=== PATIENT | female | born 1980 | race Caucasian/White ===

== ENCOUNTER 2016-03-28 20:40 | Emergency (ER) | payer MEDICAID ==
--- NOTE | 2016-03-28 21:12 | EDPHY ---
H & P Stated Complaint: fever, cold sx x 3 days Time Seen by Provider: 03/28/16 20:52 HPI/ROS: HPI: 35-year-old female presents to emergency department with chief concern fever, cough. Reports chest discomfort when she coughs only. Chest pain not present when she is not coughing. Symptoms onset suddenly 2 days ago. Reports associated rhinorrhea, chills, myalgias. Denies dizziness, dysphagia, shortness of breath, abdominal pain, nausea, vomiting, diarrhea, rash. She is a current daily smoker. No history of asthma. History of pneumonia x1. ROS:10 point review of systems is negative other than as stated in HPI Source: Patient Exam Limitations: No limitations - Personal History LMP (Females 10-55): 8-14 Days Ago Current Tetanus/Diphtheria Vaccine: Unsure - Medical/Surgical History Hx Asthma: No Hx Chronic Respiratory Disease: No Hx Diabetes: No Hx Cardiac Disease: No Hx Renal Disease: No Hx Cirrhosis: No Hx Alcoholism: No Hx HIV/AIDS: No Hx Splenectomy or Spleen Trauma: No Other PMH: PSH: SURG FOR ENDOMETRIOSIS/ABLATION. Born with 1 kidney. c sections. etoh. tubal ligation - Family History Significant Family History: No pertinent family hx - Social History Smoking Status: Current every day smoker Alcohol Use: Rarely Drug Use: None - Physical Exam Exam: Vital signs stable, reviewed by me General: Awake, alert, calm, cooperative. No acute distress. Head: Normalocephalic. Atraumatic. EENT: PERRLA. EOMI. No pallor or injection. Anicteric. No nystagmus. No injection. TMs intact bilaterally with normal landmarks. Minimal rhinorrhea with mildly erythematous nasal turbinates bilaterally. Oropharynx without redness, exudates, or lesions. Tonsils 2+ bilaterally, no exudates. Neck: Supple, nontender. No lymphadenopathy. Full range of motion. No meningismus. Respiratory: Breathing unlabored. Breath sounds equal bilaterally and clear to auscultation. No adventitious sounds. CV: Chest nontender, atraumatic. Heart rate regular. No murmur, distal pulses 2+ bilaterally. Brisk cap refill all extremities. GI: Abdomen soft, nontender. Bowel sounds normoactive and positive x4 quadrants. Neuro: Alert. Oriented x 3. Speech clear. Nonfocal cranial nerves throughout. Sensation intact all extremities. Skin: Skin warm, dry, intact. Skin turgor normal. Extremities: Full range of motion in all 4 extremities. Strength 5+ all extremities. Constitutional: Initial Vital Signs Temperature (C) 37.3 C 03/28/16 20:43 Heart Rate 87 03/28/16 20:43 Respiratory Rate 16 03/28/16 20:43 Blood Pressure 111/79 03/28/16 20:43 O2 Sat (%) 96 03/28/16 20:43 O2 Delivery Mode Room Air Allergies/Adverse Reactions: amoxicillin Allergy (Verified 08/03/15 09:39) Home Medications: Medication Instructions Recorded Azithromycin [Zithromax] 250 mg PO DAILY #6 tab 03/28/16 Wellbutrin 100mg (*) 03/28/16 Medical Decision Making - Diagnostics Imaging: Chest, PA and Lateral History: Vertigo, cough, chest pain x4 days, cigarette smoker Comparison: None Findings: There is a 2.1 cm rounded density in the left upper lobe. There is a smaller 8 mm nodule in the right upper lobe. There is possibly an early right lower lobe infiltrate. There is bronchial wall thickening. Heart size is normal. There is no adenopathy or pleural effusion. Bones are unremarkable for age. Impression: Bilateral upper lobe pulmonary nodules. Possibly early right lower lobe infiltrate. Recommendation: Either follow-up chest x-ray after a cycle of antibiotic therapy or chest CT if a follow-up chest x-ray does not improve Results discussed with Gracie Boggs at 10:03 p.m. Dictated By: Ramiro Hicks MD ED Course/Re-evaluation: Patient is nontoxic. Temp 37.3 on arrival. Lungs clear to auscultation bilaterally. Flu swab negative. Given 650 mg p.o. Tylenol. Chest x-ray shows possible early infiltrate. Also shows bilateral upper lobe nodules. Patient counseled regarding these findings. She will be started on Zithromax. I have recommended a repeat chest x-ray and/or CT as directed by primary care at completion of antibiotic. Patient understands she needs to have repeat imaging to evaluate the pulmonary nodules found on x-ray. She is established at the [facility] Differential Diagnosis: Influenza, other viral URI, pneumonia, reactive airway disease - Data Points Laboratory Results: 03/28/16 21:00 Influenza Typ A,B (DFA) NEGATIVE FOR FLU (NEGATIVE) Medications Given: Discontinued Medications Acetaminophen (Tylenol) 1,000 mg PO EDNOW ONE Stop: 03/28/16 21:34 Last Admin: 03/28/16 21:43 Dose: 1,000 mg Departure - Departure Disposition: Home, Routine, Self-Care Clinical Impression: Pulmonary nodule, CAP (community acquired pneumonia) Condition: Good Instructions: Community Acquired Pneumonia (ED), Pulmonary Nodules (ED) Additional Instructions: Plan: Antibiotic as prescribed Push fluids You may use 600 mg of ibuprofen every 6 hours for fever, inflammation, or pain. Always take ibuprofen with food and stay well hydrated while taking. Do not exceed the maximum allowable dose in a 24 hour period which is 2400 mg. You may use 1000mg of Tylenol every 8 hours. This may be staggered with the ibuprofen. Do not exceed the maximum dose in a 24 hour period which is 3 GM or 3000 mg. Referrals: [facility] [Outside] - As per Instructions Stand Alone Forms: Work Excuse Prescriptions: Azithromycin [Zithromax] 250 mg PO DAILY #6 tab
[2016-03-28] MEDS ORDERED: ACETAMINOPHEN 500 MG TAB PO ONE (21:33)
[2016-03-28 21:44] VITALS: O2SAT 98
--- NOTE | 2016-03-28 22:06 | DX ---
Chest, PA and Lateral History: Vertigo, cough, chest pain x4 days, cigarette smoker Comparison: None Findings: There is a 2.1 cm rounded density in the left upper lobe. There is a smaller 8 mm nodule in the right upper lobe. There is possibly an early right lower lobe infiltrate. There is bronchial wal l thickening. Heart size is normal. There is no adenopathy or pleural effusion. Bones are unremarkab le for age. Impression: Bilateral upper lobe pulmonary nodules. Possibly early right lower lobe infiltrate. Recommendation: Either follow-up chest x-ray after a cycle of antibiotic therapy or chest CT if a fol low-up chest x-ray does not improve Results discussed with Gracie Boggs at 10:03 p.m.
[2016-03-28 22:33] VITALS: BP 116/75; PULSE 73; RESP 16; TEMP 99.3
== END 2016-03-28 22:31 | disposition home or self-care (01) ==
DX: J18.9 Pneumonia, unspecified organism (principal); R91.1 Solitary pulmonary nodule; F17.200 Nicotine dependence, unspecified, uncomplicated

== ENCOUNTER 2016-04-20 20:47 | Emergency (ER) | payer MEDICAID ==
[2016-04-20 21:25] VITALS: RESP 16; O2SAT 97
[2016-04-20 21:33] LABS: COLOR PALE YELLOW; LEUKOCYTE ESTERASE,URINE NEGATIVE (NEGATIVE); NITRITE,URINE NEGATIVE (NEGATIVE)
[2016-04-20 21:38] LABS: BACTERIA TRACE /hpf (NONE SEEN); MUCUS TRACE /lpf (NONE-1+)
--- NOTE | 2016-04-20 21:43 | EDPHY ---
H & P Time Seen by Provider: 04/20/16 20:57 HPI/ROS: CHIEF COMPLAINT: Abdominal pain HISTORY OF PRESENT ILLNESS: 36-year-old female presents to the emergency department by private vehicle complaining of right lower quadrant abdominal pain. The patient developed abdominal pain earlier this morning she denies any known trauma or injury. She has a history of frequent urinary tract infections. She initially developed some suprapubic pain however that is mostly resolved and now has isolated pain or right lower quadrant. Denies flank pain. Denies chest pain or difficulty breathing. No diarrhea. She has felt subjective fevers and chills. REVIEW OF SYSTEMS: Constitutional: No fever, no chills. Eyes: No double or blurry vision. ENT: No sore throat. Respiratory: No cough, no shortness of breath. Cardiac: No chest pain. Gastrointestinal: Abdominal pain as above. No vomiting or diarrhea. Genitourinary: No dysuria. Musculoskeletal: No neck or back pain. Skin: No rashes. Neurological: No headache. Past Medical/Surgical History: Ovarian cysts, endometriosis, tubal ligation, born with 1 kidney Social History: Single and lives in [place] Smoking Status: Current every day smoker Physical Exam: General Appearance: Alert, no distress. 130/60, 36.7 temperature Eyes: Pupils equal and round. Extraocular motions are all intact. ENT: Mouth: Mucous membranes moist. Respiratory: No wheezing, rhonchi, or rales, lungs are clear to auscultation. Cardiovascular: Regular rate and rhythm. Gastrointestinal: Abdomen is soft. Tenderness with palpation in the right lower quadrant. There is no rebound, guarding or masses noted. No CVA tenderness bilaterally. Neurological: Alert and oriented x 3, cranial nerves II through XII grossly intact Skin: Warm and dry, no rashes. Musculoskeletal: Nontender to palpate along the cervical, thoracic or lumbar spine. Neck is supple. Extremities: Full range of motion and no peripheral edema. Psychiatric: Patient is oriented X 3, there is no agitation. Constitutional: Initial Vital Signs Temperature (C) 36.7 C 04/20/16 20:53 Heart Rate 78 04/20/16 20:53 Respiratory Rate 18 04/20/16 20:53 Blood Pressure 131/60 H 04/20/16 20:53 O2 Sat (%) 96 04/20/16 20:53 O2 Delivery Mode Room Air Allergies/Adverse Reactions: amoxicillin Allergy (Verified 04/20/16 20:51) Home Medications: Medication Instructions Recorded Wellbutrin 100mg (*) 03/28/16 Vivatrol 04/20/16 Medical Decision Making - Diagnostics Imaging: Pelvic ultrasound reveals small uterine fibroid. No ovarian cysts or evidence of ovarian torsion noted. This was reported to me by Dr. Kirt Cortes. ED Course/Re-evaluation: 36-year-old female presents to the emergency department with lower abdominal pain. Patient has a history of frequent urinary tract infections. Her urinalysis today was clear with the exception of just trace bacteria. The patient had pain with palpation or right lower quadrant. Pelvic ultrasound was unremarkable. Unable to visualize appendix on abdominal ultrasound. CT imaging of the abdomen and pelvis was ordered to rule out acute appendicitis. The pros and cons of this were discussed with the patient including radiation exposure and the patient verbalized understanding and agreed. CT imaging of the abdomen pelvis was normal. Normal appearing appendix. Patient will be discharged home with close follow-up with primary care provider. Instructed to return if fever or worsening symptoms. Differential Diagnosis: Including but not limited to ovarian cyst, ovarian torsion, acute appendicitis, urinary tract infection, pyelonephritis, kidney stone - Data Points Laboratory Results: Laboratory Results 04/20/16 21:50 04/20/16 21:50 04/20/16 04/20/16 04/20/16 21:50 21:50 21:50 WBC 6.04 10^3/uL 10^3/uL (3.80-9.50) RBC 3.99 10^6/uL L 10^6/uL (4.18-5.33) Hgb 12.3 g/dL L g/dL (12.6-16.3) Hct 36.2 % L % (38.0-47.0) MCV 90.7 fL fL (81.5-99.8) MCH 30.8 pg pg (27.9-34.1) MCHC 34.0 g/dL g/dL (32.4-36.7) RDW 13.3 % % (11.5-15.2) Plt Count 317 10^3/uL 10^3/uL (150-400) MPV 10.4 fL fL (8.7-11.7) Neut % (Auto) 49.2 % % (39.3-74.2) Lymph % (Auto) 33.9 % % (15.0-45.0) Nobles % (Auto) 10.9 % % (4.5-13.0) Eos % (Auto) 5.0 % % (0.6-7.6) Baso % (Auto) 0.8 % % (0.3-1.7) Nucleat RBC Rel Count 0.0 % % (0.0-0.2) Absolute Neuts (auto) 2.97 10^3/uL 10^3/uL (1.70-6.50) Absolute Lymphs (auto) 2.05 10^3/uL 10^3/uL (1.00-3.00) Absolute Monos (auto) 0.66 10^3/uL 10^3/uL (0.30-0.80) Absolute Eos (auto) 0.30 10^3/uL 10^3/uL (0.03-0.40) Absolute Basos (auto) 0.05 10^3/uL 10^3/uL (0.02-0.10) Absolute Nucleated RBC 0.00 10^3/uL 10^3/uL (0-0.01) Immature Gran % 0.2 % % (0.0-1.1) Immature Gran # 0.01 10^3/uL 10^3/uL (0.00-0.10) Sodium 139 mEq/L mEq/L (134-144) Potassium 3.8 mEq/L mEq/L (3.5-5.2) Chloride 107 mEq/L mEq/L (97-110) Carbon Dioxide 22 mEq/l mEq/l (22-31) Anion Gap 10 mEq/L mEq/L (8-16) BUN 16 mg/dL mg/dL (7-23) Creatinine 0.9 mg/dL mg/dL (0.6-1.0) Estimated GFR > 60 Glucose 109 mg/dL H mg/dL (70-100) Calcium 9.1 mg/dL mg/dL (8.5-10.4) Beta HCG, Qual NEGATIVE Urine Color Urine Appearance Urine pH Ur Specific [place] Urine Protein Urine Ketones Urine Blood Urine Nitrate Urine Bilirubin Urine Urobilinogen Ur Leukocyte Esterase Urine RBC Urine WBC Ur Epithelial Cells Urine Bacteria Urine Mucus Urine Glucose 04/20/16 21:20 WBC RBC Hgb Hct MCV MCH MCHC RDW Plt Count MPV Neut % (Auto) Lymph % (Auto) Nobles % (Auto) Eos % (Auto) Baso % (Auto) Nucleat RBC Rel Count Absolute Neuts (auto) Absolute Lymphs (auto) Absolute Monos (auto) Absolute Eos (auto) Absolute Basos (auto) Absolute Nucleated RBC Immature Gran % Immature Gran # Sodium Potassium Chloride Carbon Dioxide Anion Gap BUN Creatinine Estimated GFR Glucose Calcium Beta HCG, Qual Urine Color PALE YELLOW Urine Appearance CLEAR Urine pH 7.0 (5.0-7.5) Ur Specific [place] 1.010 (1.002-1.030) Urine Protein NEGATIVE (NEGATIVE) Urine Ketones NEGATIVE (NEGATIVE) Urine Blood NEGATIVE (NEGATIVE) Urine Nitrate NEGATIVE (NEGATIVE) Urine Bilirubin NEGATIVE (NEGATIVE) Urine Urobilinogen NEGATIVE EU EU (0.2-1.0) Ur Leukocyte Esterase NEGATIVE (NEGATIVE) Urine RBC 1-3 /hpf /hpf (0-3) Urine WBC 1-3 /hpf /hpf (0-3) Ur Epithelial Cells TRACE /lpf /lpf (NONE-1+) Urine Bacteria TRACE /hpf H /hpf (NONE SEEN) Urine Mucus TRACE /lpf /lpf (NONE-1+) Urine Glucose NEGATIVE (NEGATIVE) Departure - Departure Disposition: Home, Routine, Self-Care Clinical Impression: Abdominal pain Qualifiers: Abdominal location: right lower quadrant Qualified Code(s): R10.31 - Right lower quadrant pain Condition: Good Instructions: Acute Abdominal Pain (ED) Additional Instructions: Ibuprofen 600 mg every 8 hours as needed for pain. Call [phone] for the results of your urine culture in 48 hours. Abdominal Pain: Return to the Emergency Department immediately for increasing pain, fever, vomiting, or if not completely better in 8-12 hours. Referrals: Ira Dsouza PA [Primary Care Provider] - 1-2 days without fail
[2016-04-20] MEDS ORDERED: IOPAMIDOL (ISOVUE-300) 100 ML BTL IV ONE (21:50)
[2016-04-20 21:56] LABS: % IMMATURE GRANULYOCYTES 0.2 % (0.0-1.1); ABSOLUTE IMMATURE GRANULOCYTES 0.01 10^3/uL (0.00-0.10); ADD DIFF? NO; ADD MORPH? NO; ADD SCAN? NO; ATYPICAL LYMPHOCYTE FLAG 20 (0-99); FRAGMENT RBC FLAG 0 (0-99); HEMATOCRIT 36.2 % (38.0-47.0); HEMOGLOBIN 12.3 g/dL (12.6-16.3); LEFT SHIFT FLG 0 (0-99); LIPEMIA HEMOLYSIS FLAG 90 (0-99); MEAN CELL HEMOGLOBIN 30.8 pg (27.9-34.1); MEAN CELL VOLUME 90.7 fL (81.5-99.8); MEAN PLATELET VOLUME 10.4 fL (8.7-11.7); PLATELET CLUMPS FLAG 0 (0-99); PLATELET COUNT 317 10^3/uL (150-400); RED BLOOD CELL COUNT 3.99 10^6/uL (4.18-5.33); RED CELL DISTRIBUTION WIDTH 13.3 % (11.5-15.2)
[2016-04-20 22:13] LABS: ANION GAP 10 mEq/L (8-16); CALCIUM 9.1 mg/dL (8.5-10.4); CARBON DIOXIDE 22 mEq/l (22-31); CHLORIDE 107 mEq/L (97-110); CREATININE 0.9 mg/dL (0.6-1.0); GLOMERULAR FILTRATION RATE > 60; GLUCOSE 109 mg/dL (70-100); POTASSIUM 3.8 mEq/L (3.5-5.2); SODIUM 139 mEq/L (134-144)
[2016-04-20 23:20] VITALS: BP 110/66; PULSE 60; TEMP 98.2
[2016-04-20] MEDS ORDERED: HYDROCOD/APAP 5/325 PREPACK#6 BTL TAKEHOME ONE (23:31)
== END 2016-04-20 23:46 | disposition home or self-care (01) ==
DX: R10.31 Right lower quadrant pain (principal); F17.200 Nicotine dependence, unspecified, uncomplicated; Z98.51 Tubal ligation status
CPT/HCPCS: Q9967

== ENCOUNTER 2016-08-15 23:23 | Emergency (ER) | payer MEDICAID ==
[2016-08-15 23:30] VITALS: BP 112/57; PULSE 67; RESP 16; TEMP 97.9; O2SAT 99
--- NOTE | 2016-08-15 23:41 | EDPHY ---
H & P Stated Complaint: R hand pain HPI/ROS: HPI CHIEF COMPLAINT: Right wrist pain HISTORY OF PRESENT ILLNESS: This patient very pleasant 36-year-old female, she presents to the emergency room with right wrist pain. 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 For the past few weeks to months she has developed sharp right wrist pain. It is stabbing palmar side into her hand a little bit up to her forearm. She knows with repetitive movements. Her pressure of her wrist. Denies numbness or tingling. Describes it as sharp stabbing pain into her fingertips. Denies trauma. 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 Family History: Noncontributory ROS REVIEW OF SYSTEMS: A comprehensive 10 point review of systems is otherwise negative aside from elements mentioned in the history of present illness. Exam Constitutional triage nursing summary reviewed, vital signs reviewed, awake/ alert. Eyes normal conjunctivae and sclera, EOMI, PERRLA. HENT normal inspection, atraumatic, moist mucus membranes, no epistaxis, neck supple/ no meningismus, no raccoon eyes. Respiratory clear to auscultation bilaterally, normal breath sounds, no respiratory distress, no wheezing. Cardiovascular rate normal, regular rhythm, no murmur, no edema, distal pulses normal. Gastrointestinal soft, non-tender, no rebound, no guarding, normal bowel sounds, no distension, no pulsatile mass. Genitourinary no CVA tenderness. Musculoskeletal right wrist: Tender palpation over the carpal tunnel, reproducible on exam. No significant signs of trauma right hand or wrist. Neurovascular intact. Good radial pulse. Good cap refill. no midline vertebral tenderness, full range of motion, no calf swelling, no tenderness of extremities, no meningismus, good pulses, neurovascularly intact. Skin pink, warm, & dry, no rash, skin atraumatic. Neurologic awake, alert and oriented x 3, AAOx3, moves all 4 extremities equally, motor intact, sensory intact, CN II-XII intact, normal cerebellar, normal vision, normal speech. Psychiatric normal mood/affect. Heme/Lymph/Immune no lymphadenopathy. Differential Diagnosis: Includes but is not limited to in a particular order, carpal tunnel syndrome, paresthesias, neuropathy. Medical Decision Making: Patient clinically on exam has carpal tunnel syndrome. Recommend wrist splints. Ice. Anti-inflammatory pain medicine and rest. She understands follow-up with Orthopedics she continues to have worsening pain. Return emergency if there is any questions or concerns including worsening pain, swelling, redness or fever. Source: Patient - Personal History LMP (Females 10-55): 22-28 Days Ago Current Tetanus/Diphtheria Vaccine: Unsure Current Tetanus Diphtheria and Acellular Pertussis (TDAP): Unsure - Medical/Surgical History Hx Asthma: No Hx Chronic Respiratory Disease: No Hx Diabetes: No Hx Cardiac Disease: No Hx Renal Disease: No Hx Cirrhosis: No Hx Alcoholism: Yes Hx HIV/AIDS: No Hx Splenectomy or Spleen Trauma: No Other PMH: PSH: SURG FOR ENDOMETRIOSIS/ABLATION. Born with 1 kidney. c sections. etoh. tubal ligation - Social History Smoking Status: Current every day smoker Constitutional: Initial Vital Signs Temperature (C) 36.6 C 08/15/16 23:27 Heart Rate 67 08/15/16 23:27 Respiratory Rate 16 08/15/16 23:27 Blood Pressure 112/57 L 08/15/16 23:27 O2 Sat (%) 99 08/15/16 23:27 O2 Delivery Mode Room Air Allergies/Adverse Reactions: amoxicillin Allergy (Verified 08/15/16 23:27) Home Medications: Medication Instructions Recorded Wellbutrin 100mg (*) 03/28/16 Vivatrol 04/20/16 Ibuprofen [Motrin (*)] 800 mg PO Q6-8PRN #14 tab 08/15/16 traZODone 08/15/16 Departure - Departure Disposition: Home, Routine, Self-Care Clinical Impression: Carpal tunnel syndrome Qualifiers: Laterality: right Qualified Code(s): G56.01 - Carpal tunnel syndrome, right upper limb Condition: Good Instructions: Arthralgia (ED), Tendinitis (ED) Additional Instructions: 1. I feel you have carpal tunnel syndrome. 2. Stay in a wrist splint for the next 2 weeks. Minimize repetitive wrist movement. 3. Take anti-inflammatory pain medicine. 4. Follow up with orthopedic surgery continue have pain. Referrals: Patient,NotPresent [Primary Care Provider] - As per Instructions Benedict Foster MD [Medical Doctor] - As per Instructions Stand Alone Forms: Work Excuse Prescriptions: Ibuprofen [Motrin (*)] 800 mg PO Q6-8PRN #14 tab
== END 2016-08-16 00:12 | disposition home or self-care (01) ==
DX: G56.01 Carpal tunnel syndrome, right upper limb (principal); F17.200 Nicotine dependence, unspecified, uncomplicated
CPT/HCPCS: L3908

== ENCOUNTER 2016-09-07 18:42 | Emergency (ER) | payer MEDICAID ==
[2016-09-07 18:53] VITALS: TEMP 98.4; O2SAT 98
[2016-09-07 19:12] LABS: COLOR YELLOW; LEUKOCYTE ESTERASE,URINE 1+ (NEGATIVE); NITRITE,URINE NEGATIVE (NEGATIVE)
[2016-09-07] MEDS ORDERED: ONDANSETRON DISINTEGRATING 4 MG TAB PO ONE (19:24)
[2016-09-07 19:25] LABS: WBC,URINE 15-25 /hpf (0-3)
[2016-09-07] MEDS ORDERED: CEPHALEXIN 500 MG CAP PO ONE (19:26)
--- NOTE | 2016-09-07 19:28 | EDPHY ---
H & P Time Seen by Provider: 09/07/16 19:06 HPI/ROS: HPI Urinary complaints. 36-year-old female by private vehicle. She complains of burning with urination , suprapubic discomfort and increased frequency with urination for the last 3 days. She denies back pain. She reports she has had some nausea but no vomiting. ROS: Constitutional: No fever, no chills. No weakness. Respiratory: No cough. No shortness of breath. Cardiac: No chest pain, no palpitations. Gastrointestinal: No abdominal pain, no vomiting, no diarrhea. Genitourinary: No hematuria. As above. Musculoskeletal: No back pain. No neck pain. No myalgias or arthralgias. Skin: No rashes. Neurological: No headache. No focal weakness or altered sensation. Past medical history: Endometriosis, C-sections, alcohol abuse. Social history: Alcohol abuse. Nonsmoker. Here by herself. Physical Exam: General Appearance: Alert, no distress. This patient is responding to questions appropriately and in full sentences. This patient appears well- hydrated and well-nourished. Eyes: Pupils equal and round no pallor or injection. No lid edema, erythema or injection. Respiratory: There are no retractions, lungs are clear to auscultation with good air movement bilaterally. Cardiovascular: Regular rate and rhythm. No murmur. Gastrointestinal: Abdomen is soft with mild suprapubic discomfort on palpation. , no masses, bowel sounds normal. No focal tenderness at McBurney's point. No Marshall sign. Neurological: Motor sensory function is grossly intact. Cranial nerves are normal. Gait is normal. Skin: Warm and dry, no rashes. Musculoskeletal: No CVA tenderness on palpation bilaterally. Extremities are symmetrical. All joints range without pain or impingement. Psychiatric: No agitation. No depression. Database: EKG: Imaging: Procedures: Emergency department course: Vital signs reviewed and are normal. Patient's urinalysis indicates likely urinary tract infection. She has an allergy to penicillin but has had Keflex in the past without issue. She was given 500 mg of oral Keflex in the emergency department and 4 mg of ODT Zofran. I will send her home with these medications. I discussed follow-up with her. Return to emergency department precautions reviewed. All of her questions were answered. She feels comfortable going home. She was discharged in good condition. Differential Diagnosis: The differential diagnosis on this patient includes but is not limited to urinary tract infection. Pyelonephritis, other serious bacterial infection unlikely. This represents a partial list of diagnoses considered. These considerations are based on history, physical exam, past history, reassessment and diagnostic testing. Smoking Status: Current every day smoker Constitutional: Initial Vital Signs Temperature (C) 36.9 C 09/07/16 18:51 Heart Rate 66 09/07/16 18:51 Respiratory Rate 16 09/07/16 18:51 Blood Pressure 102/55 L 09/07/16 18:51 O2 Sat (%) 98 09/07/16 18:51 O2 Delivery Mode Room Air Allergies/Adverse Reactions: amoxicillin Allergy (Verified 08/15/16 23:27) Home Medications: Medication Instructions Recorded Wellbutrin 100mg (*) 03/28/16 Vivatrol 04/20/16 Ibuprofen [Motrin (*)] 800 mg PO Q6-8PRN #14 tab 08/15/16 traZODone 08/15/16 Cephalexin [Keflex (*)] 500 mg PO Q6 5 Days 09/07/16 Ondansetron Odt [Zofran Odt 4 mg 4 mg PO Q4PRN PRN #10 tab 09/07/16 (*)] Medical Decision Making - Data Points Laboratory Results: 09/07/16 09/07/16 09/07/16 18:50 18:30 18:30 Urine Color YELLOW Urine Appearance CLEAR Urine pH 6.0 (5.0-7.5) Ur Specific [place] 1.015 (1.002-1.030) Urine Protein NEGATIVE (NEGATIVE) Urine Ketones NEGATIVE (NEGATIVE) Urine Blood NEGATIVE (NEGATIVE) Urine Nitrate NEGATIVE (NEGATIVE) Urine Bilirubin NEGATIVE (NEGATIVE) Urine Urobilinogen NEGATIVE EU EU (0.2-1.0) Ur Leukocyte Esterase 1+ H (NEGATIVE) Urine RBC Pending Urine WBC Pending Ur Epithelial Cells Pending Urine Glucose NEGATIVE (NEGATIVE) Urine Test NEGATIVE Departure - Departure Disposition: Home, Routine, Self-Care Clinical Impression: Urinary tract infection Condition: Good Instructions: Urinary Tract Infection in Women (ED) Additional Instructions: Read and follow provided instructions. Follow-up with your primary care physician in 1-2 days for re-evaluation. Take medication as prescribed for entire course of treatment. Return to the emergency department for worsening abdominal or back pain, vomiting, fever or other serious concerns. Referrals: [facility] [Other] - As per Instructions Prescriptions: Cephalexin [Keflex (*)] 500 mg PO Q6 5 Days Ondansetron Odt [Zofran Odt 4 mg (*)] 4 mg PO Q4PRN PRN #10 tab PRN Reason: For Nausea & Vomiting
[2016-09-07 20:00] VITALS: BP 97/62; PULSE 60; RESP 14
== END 2016-09-07 20:00 | disposition home or self-care (01) ==
DX: N39.0 Urinary tract infection, site not specified (principal)

== ENCOUNTER 2016-12-01 21:48 | Emergency (ER) | payer MEDICAID ==
[2016-12-01 21:59] VITALS: BP 116/68; PULSE 78; RESP 18; TEMP 99.3; O2SAT 96
[2016-12-01] MEDS ORDERED: CEPHALEXIN 500 MG CAP PO ONE (22:15)
--- NOTE | 2016-12-01 22:20 | EDPHY ---
H & P Stated Complaint: DYSURIA , BURNING. COMPLETED MACROBID LAST WEEK Time Seen by Provider: 12/01/16 22:08 HPI/ROS: CHIEF COMPLAINT: Dysuria HISTORY OF PRESENT ILLNESS: The patient is a 36-year-old female who comes to the emergency department complaining of dysuria for the last week. She was seen at her primary is office 5 days ago and had a positive UA and was started on Macrobid. She states however that her symptoms have not improved. She denies flank pain. No fevers. No vomiting. She has a history of frequent urinary tract infections and has been referred to urologist but has not yet seen them. No vaginal symptoms. REVIEW OF SYSTEMS: Constitutional: denies: chills, fever, recent illness, recent injury EENTM: denies: blurred vision, double vision, nose congestion Respiratory: denies: cough, shortness of breath Cardiac: denies: chest pain, irregular heart rate, lightheadedness, palpitations Gastrointestinal/Abdominal: denies: abdominal pain, diarrhea, nausea, vomiting, blood streaked stools Genitourinary: See HPI Musculoskeletal: denies: joint pain, muscle pain Skin: denies: lesions, rash, jaundice, bruising Neurological: denies: headache, numbness, paresthesia, tingling, dizziness, weakness Hematologic/Lymphatic: denies: blood clots, easy bleeding, easy bruising Immunologic/allergic: denies: HIV/AIDS, transplant EXAM: GENERAL: Well-appearing, well-nourished and in no acute distress. HEAD: Atraumatic, normocephalic. EYES: Pupils equal round and reactive to light, extraocular movements intact, sclera anicteric, conjunctiva are normal. ENT: TMs normal, nares patent, oropharynx clear without exudates. Moist mucous membranes. NECK: Normal range of motion, supple without lymphadenopathy or JVD. LUNGS: Breath sounds clear to auscultation bilaterally and equal. No wheezes rales or rhonchi. HEART: Regular rate and rhythm without murmurs, rubs or gallops. ABDOMEN: Soft, nontender, normoactive bowel sounds. No guarding, no rebound. No masses appreciated. BACK: No CVA tenderness, no spinal tenderness, step-offs or deformities EXTREMITIES: Normal range of motion, no pitting or edema. No clubbing or cyanosis. NEUROLOGICAL: Cranial nerves II through XII grossly intact. Normal speech, normal gait. 5/5 strength, normal movement in all extremities, normal sensation PSYCH: Normal mood, normal affect. SKIN: Warm, dry, normal turgor, no visible rashes or lesions. Source: Patient Exam Limitations: No limitations - Personal History LMP (Females 10-55): 8-14 Days Ago Current Tetanus/Diphtheria Vaccine: Unsure Current Tetanus Diphtheria and Acellular Pertussis (TDAP): Unsure - Medical/Surgical History Hx Asthma: No Hx Chronic Respiratory Disease: No Hx Diabetes: No Hx Cardiac Disease: No Hx Renal Disease: No Hx Cirrhosis: No Hx Alcoholism: Yes Hx HIV/AIDS: No Hx Splenectomy or Spleen Trauma: No Other PMH: PSH: SURG FOR ENDOMETRIOSIS/ABLATION. Born with 1 kidney. c sections. etoh. tubal ligation - Family History Significant Family History: No pertinent family hx - Social History Smoking Status: Current every day smoker Alcohol Use: Sober Drug Use: None Constitutional: Initial Vital Signs Temperature (C) 37.4 C 12/01/16 21:57 Heart Rate 78 12/01/16 21:57 Respiratory Rate 18 12/01/16 21:57 Blood Pressure 116/68 12/01/16 21:57 O2 Sat (%) 96 12/01/16 21:57 O2 Delivery Mode Room Air Allergies/Adverse Reactions: amoxicillin Allergy (Verified 08/15/16 23:27) Home Medications: Medication Instructions Recorded Wellbutrin 100mg (*) 03/28/16 Vivatrol 04/20/16 Ibuprofen [Motrin (*)] 800 mg PO Q6-8PRN #14 tab 08/15/16 traZODone 08/15/16 Ondansetron Odt [Zofran Odt 4 mg 4 mg PO Q4PRN PRN #10 tab 09/07/16 (*)] Cephalexin [Keflex (RX)] 500 mg PO QID #30 cap 12/01/16 Medical Decision Making ED Course/Re-evaluation: The patient's urinalysis will likely be complicated by her recent antibiotic use. I will send cultures and switch her to Keflex. She is agreeable to this plan. I encouraged her to follow up with Urology as previously referred. We discussed indications for returning. Differential Diagnosis: Partial list of the Differential diagnosis considered include but were not limited to; urinary tract infection, pyelonephritis and although unlikely based on the history and physical exam, I also considered kidney stone, appendicitis, diverticulitis. I discussed these differential diagnoses and the plan with the patient as well as the usual and expected course. The patient understands that the diagnosis is provisional and that in medicine we are not always correct and that further workup is often warranted. Usual and customary warnings were given. All of the patient's questions were answered. The patient was instructed to return to the emergency department should the symptoms at all worsen or return, otherwise to followup with the physician as we discussed. - Data Points Medications Given: Discontinued Medications Cephalexin HCl (Keflex) 500 mg PO EDNOW ONE PRN Reason: Protocol Stop: 12/01/16 22:16 Last Admin: 12/01/16 22:39 Dose: 500 mg Departure - Departure Disposition: Home, Routine, Self-Care Condition: Fair Instructions: Urinary Tract Infection in Women (ED) Referrals: NONE *PRIMARY CARE P,. [Primary Care Provider] - As per Instructions Prescriptions: Cephalexin [Keflex (RX)] 500 mg PO QID #30 cap
[2016-12-01 22:30] LABS: COLOR YELLOW; LEUKOCYTE ESTERASE,URINE 1+ (NEGATIVE); NITRITE,URINE NEGATIVE (NEGATIVE)
[2016-12-01 22:49] LABS: BACTERIA 1+ /hpf (NONE SEEN); MUCUS TRACE /lpf (NONE-1+); RBC,URINE 50-182 /hpf (0-3); WBC,URINE 50-182 /hpf (0-3)
== END 2016-12-01 23:05 | disposition home or self-care (01) ==
DX: N39.0 Urinary tract infection, site not specified (principal); B96.20 Unspecified Escherichia coli [E. coli] as the cause of diseases classified elsewhere; F17.200 Nicotine dependence, unspecified, uncomplicated

== ENCOUNTER 2016-12-10 21:12 | Emergency (ER) | payer MEDICAID ==
[2016-12-10 21:31] VITALS: BP 130/87; PULSE 73; RESP 15; TEMP 98.1; O2SAT 100
[2016-12-10] MEDS ORDERED: KETOROLAC 30 MG/1 ML SDV IM ONE (21:33)
--- NOTE | 2016-12-10 21:33 | EDPHY ---
H & P Stated Complaint: c/o r upper and lower tooth pain, states she thinks it's her wisdom teeth Time Seen by Provider: 12/10/16 21:29 HPI/ROS: CHIEF COMPLAINT: Dental pain HISTORY OF PRESENT ILLNESS: The patient is a 36-year-old female who is complaining of pain in her right lower molar. She never had her wisdom teeth removed and this 1 is partially covered by skin. It causes her pain periodically. She states that she cannot afford to have the surgery to have it removed. She does have an appointment with the dentist next week. She states but that it has been painful for about a week. No fever. No swelling. No trauma per Also spoke with her because I saw a few weeks ago for a urinary tract infection. At that time she had just finished Macrobid but was still having symptoms. Her urinalysis was positive and I started her on Keflex. Her urine culture came back with E coli multiple resistance including Keflex although sensitive to Macrobid. We called her and asked her to come back to the ER and left a message on her phone which she never returned. She tells me now that she still has slight discomfort with urination but it does not really bother her. REVIEW OF SYSTEMS: Constitutional: denies: chills, fever, recent illness, recent injury EENTM: See HPI Respiratory: denies: cough, shortness of breath Cardiac: denies: chest pain, irregular heart rate, lightheadedness, palpitations Gastrointestinal/Abdominal: denies: abdominal pain, diarrhea, nausea, vomiting, blood streaked stools Genitourinary: denies: dysuria, frequency, hematuria, pain Musculoskeletal: denies: joint pain, muscle pain Skin: denies: lesions, rash, jaundice, bruising Neurological: denies: headache, numbness, paresthesia, tingling, dizziness, weakness Hematologic/Lymphatic: denies: blood clots, easy bleeding, easy bruising Immunologic/allergic: denies: HIV/AIDS, transplant EXAM: GENERAL: Well-appearing, well-nourished and in no acute distress. HEAD: Atraumatic, normocephalic. EYES: Pupils equal round and reactive to light, extraocular movements intact, sclera anicteric, conjunctiva are normal. ENT: Patient's right mandibular wisdom tooth partially covered with issue. Not visibly abnormal. No swelling. Adjacent molar with caries. TMs normal, nares patent, oropharynx clear without exudates. Moist mucous membranes. NECK: Normal range of motion, supple without lymphadenopathy or JVD. LUNGS: Breath sounds clear to auscultation bilaterally and equal. No wheezes rales or rhonchi. HEART: Regular rate and rhythm without murmurs, rubs or gallops. ABDOMEN: Soft, nontender, normoactive bowel sounds. No guarding, no rebound. No masses appreciated. BACK: No CVA tenderness, no spinal tenderness, step-offs or deformities EXTREMITIES: Normal range of motion, no pitting or edema. No clubbing or cyanosis. NEUROLOGICAL: Cranial nerves II through XII grossly intact. Normal speech, normal gait. 5/5 strength, normal movement in all extremities, normal sensation PSYCH: Normal mood, normal affect. SKIN: Warm, dry, normal turgor, no visible rashes or lesions. Source: Patient Exam Limitations: No limitations - Personal History LMP (Females 10-55): 15-21 Days Ago Current Tetanus/Diphtheria Vaccine: Unsure Current Tetanus Diphtheria and Acellular Pertussis (TDAP): Unsure - Medical/Surgical History Hx Asthma: No Hx Chronic Respiratory Disease: No Hx Diabetes: No Hx Cardiac Disease: No Hx Renal Disease: No Hx Cirrhosis: No Hx Alcoholism: Yes Hx HIV/AIDS: No Hx Splenectomy or Spleen Trauma: No Other PMH: PSH: SURG FOR ENDOMETRIOSIS/ABLATION. Born with 1 kidney. c sections. etoh. tubal ligation - Family History Significant Family History: No pertinent family hx - Social History Smoking Status: Current every day smoker Constitutional: Initial Vital Signs Temperature (C) 36.7 C 12/10/16 21:15 Heart Rate 73 12/10/16 21:15 Respiratory Rate 15 12/10/16 21:15 Blood Pressure 130/87 H 12/10/16 21:15 O2 Sat (%) 100 12/10/16 21:15 O2 Delivery Mode Room Air Allergies/Adverse Reactions: amoxicillin Allergy (Verified 08/15/16 23:27) Home Medications: Medication Instructions Recorded Wellbutrin 100mg (*) 03/28/16 Ketorolac Tromethamine [Toradol] 10 mg PO Q6H #10 tab 12/10/16 Nitrofurantoin Monohyd/M-Cryst 100 mg PO BID #20 cap 12/10/16 [Nitrofurantoin Teller-Macrocrystal] Medical Decision Making ED Course/Re-evaluation: The patient has normal renal function there at by previous lab work. I will treat her with IM Toradol and a prescription. She has been taking ibuprofen at home with insufficient relief. She will follow up with a dentist early next week. We discussed the fact that we cannot prescribe narcotics. Patient understands The patient is requesting a no other round of antibiotics. Her most recent sample was sensitive for Macrobid. I will prescribe for this. She is not toxic -appearing. I advised her to return if her symptoms worsen and to follow up with her urologist regardless. Differential Diagnosis: Partial list of the Differential diagnosis considered include but were not limited to; wisdom teeth, dental caries, infection, fracture, pulpitis, substance abuse and although unlikely based on the history and physical exam, I also considered abscess. I discussed these differential diagnoses and the plan with the patient as well as the usual and expected course. The patient understands that the diagnosis is provisional and that in medicine we are not always correct and that further workup is often warranted. Usual and customary warnings were given. All of the patient's questions were answered. The patient was instructed to return to the emergency department should the symptoms at all worsen or return, otherwise to followup with the physician as we discussed. - Data Points Medications Given: Discontinued Medications Ketorolac Tromethamine (Toradol) 30 mg IM EDNOW ONE Stop: 12/10/16 21:34 Last Admin: 12/10/16 21:42 Dose: 30 mg Departure - Departure Disposition: Home, Routine, Self-Care Clinical Impression: Chronic dental pain Condition: Fair Instructions: Ketorolac (By injection), Toothache (ED) Referrals: [facility],. [Primary Care Provider] - As per Instructions Prescriptions: Ketorolac Tromethamine [Toradol] 10 mg PO Q6H #10 tab Nitrofurantoin Monohyd/M-Cryst [Nitrofurantoin Teller-Macrocrystal] 100 mg PO BID #20 cap
== END 2016-12-10 21:57 | disposition home or self-care (01) ==
LOC: CED 21:12
DX: K08.89 Other specified disorders of teeth and supporting structures (principal); F17.200 Nicotine dependence, unspecified, uncomplicated
CPT/HCPCS: J1885

== ENCOUNTER 2017-01-22 18:39 | Emergency (ER) | payer MEDICAID ==
[2017-01-22 18:51] VITALS: RESP 16; TEMP 97.9
[2017-01-22] MEDS ORDERED: ONDANSETRON 4 MG/2 ML VIAL IVP ONE (19:15)
[2017-01-22] MEDS ORDERED: NS 1,000 ML IV ONE ×2 (19:15)
--- NOTE | 2017-01-22 19:19 | EDPHY ---
H & P Stated Complaint: [place] teeth out on Monday;appt w/dentist Mon;wants pain/ nausea med Time Seen by Provider: 01/22/17 19:15 HPI/ROS: HPI: This is a 36-year-old female who presents with Chief Complaint: [place] teeth out on Monday;appt w/dentist Mon;wants pain/ nausea med Location: Body Quality: Does not feel well Duration: 1 day Signs and Symptoms: no fever, + nausea, no vomiting, no hematemesis, no blood in stool, no abdominal bloating, no diarrhea, no back pain, no urinary symptoms , no vaginal bleeding/vaginal discharge, no indigestion, no chest pain, no shortness of breath Timing: Sudden, constant Severity: [id number] Context: Patient reports that she had her top left in top bottom wisdom teeth removed on Monday. She was given Cantrall for pain relief which she has been taking along with ibuprofen and Naprosyn. She return to work on . Today she started to feel nauseous. She is concerned that she may have caused injury to her kidney from large amounts of NSAID use. Last urination 8 hr ago. Oral intake is poor. LMP 1 week ago. Modifying Factors: See above Comment: ROS: see HPI Constitutional: No fever, no chills, no weight loss Eyes: No blurred vision Respiratory: No shortness of breath, no cough Cardiovascular: No chest pain, no palpitations Gastrointestinal: No nausea, no vomiting, no diarrhea, no hematemesis, no blood in stool Genitourinary: No dysuria, no blood in urine Extremities: No myalgias, no edema Neurologic: No weakness, no numbness Skin: No rashes, no petechiae Hematologic: No bruising, no bleeding MEDICAL/SURGICAL/SOCIAL HISTORY: Medical history: Born with 1 kidney. Alcoholism. Does not take any regular medications. Surgical history: SURG FOR ENDOMETRIOSIS/ABLATION, c sections, tubal ligation Social history: Employed. CONSTITUTIONAL: Pleasant adult white female, awake and alert, no obvious distress HEENT: Atraumatic and normocephalic, PERRL, EOMI. Tympanic membranes clear. Oropharynx clear, tooth #16 and #17 no erythema/drainage/tenderness with palpation. no exudate and moist pink mucosa. Airway patent. No lymphadenopathy. No meningismus. Cardiovascular: Normal S1/S2, regular rate, regular rhythm, without murmur rub or gallop. PULMONARY/CHEST: Symmetrical and nontender. Clear to auscultation bilaterally. Good air movement. No accessory muscle usage. ABDOMEN: Soft, nondistended, nontender, no rebound, no guarding, no peritoneal signs, no masses or organomegaly. No CVAT. EXTREMITIES: 2/2 pulses, strength 5/5, no deformities, no clubbing, no cyanosis or edema. NEUROLOGICAL: no focal neuro deficits. GCS 15. SKIN: Warm and dry, no erythema. no rash. Good capillary refill. Source: Patient Exam Limitations: No limitations - Personal History LMP (Females 10-55): 1-7 Days Ago Current Tetanus Diphtheria and Acellular Pertussis (TDAP): Yes - Medical/Surgical History Hx Asthma: No Hx Chronic Respiratory Disease: No Hx Diabetes: No Hx Cardiac Disease: No Hx Renal Disease: No Hx Cirrhosis: No Hx Alcoholism: Yes Hx HIV/AIDS: No Hx Splenectomy or Spleen Trauma: No Other PMH: PSH: SURG FOR ENDOMETRIOSIS/ABLATION. Born with 1 kidney. c sections. etoh. tubal ligation - Social History Smoking Status: Current every day smoker Constitutional: Initial Vital Signs Temperature (C) 36.6 C 01/22/17 18:45 Heart Rate 77 01/22/17 18:45 Respiratory Rate 16 01/22/17 18:45 Blood Pressure 136/100 H 01/22/17 18:45 O2 Sat (%) 98 01/22/17 18:45 O2 Delivery Mode Room Air Allergies/Adverse Reactions: amoxicillin Allergy (Verified 01/22/17 18:47) Home Medications: Medication Instructions Recorded Wellbutrin 100mg (*) 03/28/16 Ondansetron Odt [Zofran Odt 4 mg 4 mg PO Q4 PRN #12 tab 01/22/17 (*)] Medical Decision Making ED Course/Re-evaluation: Labs, IV fluids, IV medications ordered Given 2 L of normal saline, IV from morphine 4 mg and IV Zofran No signs of sepsis/dry socket/Gomez's angina/malocclusion/dehydration/acute kidney injury 2010: Labs reviewed and showed no signs of anemia, leukocytosis, acute kidney injury, electrolyte imbalance Reassessed patient; reports that she is feeling better. This patient was seen under the supervision of my secondary supervising physician. I evaluated care for this patient independently. Patient's presentation, labs/imaging, treatment and plan of care were discussed with secondary supervising physician. Differential Diagnosis: Differential diagnosis includes but is not limited acute alveolar osteitis, Gomez's angina, dry socket, dehydration. - Data Points Laboratory Results: Laboratory Results 01/22/17 19:35 01/22/17 19:35 01/22/17 01/22/17 19:35 19:35 WBC 10.08 10^3/uL H 10^3/uL (3.80-9.50) RBC 3.75 10^6/uL L 10^6/uL (4.18-5.33) Hgb 11.8 g/dL L g/dL (12.6-16.3) Hct 34.0 % L % (38.0-47.0) MCV 90.7 fL fL (81.5-99.8) MCH 31.5 pg pg (27.9-34.1) MCHC 34.7 g/dL g/dL (32.4-36.7) RDW 12.7 % % (11.5-15.2) Plt Count 297 10^3/uL 10^3/uL (150-400) MPV 10.2 fL fL (8.7-11.7) Neut % (Auto) 76.4 % H % (39.3-74.2) Lymph % (Auto) 12.3 % L % (15.0-45.0) Charlton % (Auto) 7.9 % % (4.5-13.0) Eos % (Auto) 2.4 % % (0.6-7.6) Baso % (Auto) 0.6 % % (0.3-1.7) Nucleat RBC Rel Count 0.0 % % (0.0-0.2) Absolute Neuts (auto) 7.70 10^3/uL H 10^3/uL (1.70-6.50) Absolute Lymphs (auto) 1.24 10^3/uL 10^3/uL (1.00-3.00) Absolute Monos (auto) 0.80 10^3/uL 10^3/uL (0.30-0.80) Absolute Eos (auto) 0.24 10^3/uL 10^3/uL (0.03-0.40) Absolute Basos (auto) 0.06 10^3/uL 10^3/uL (0.02-0.10) Absolute Nucleated RBC 0.00 10^3/uL 10^3/uL (0-0.01) Immature Gran % 0.4 % % (0.0-1.1) Immature Gran # 0.04 10^3/uL 10^3/uL (0.00-0.10) Sodium 145 mEq/L H mEq/L (134-144) Potassium 4.1 mEq/L mEq/L (3.5-5.2) Chloride 107 mEq/L mEq/L (97-110) Carbon Dioxide 23 mEq/l mEq/l (22-31) Anion Gap 15 mEq/L mEq/L (8-16) BUN 12 mg/dL mg/dL (7-23) Creatinine 0.9 mg/dL mg/dL (0.6-1.0) Estimated GFR > 60 Glucose 83 mg/dL mg/dL (70-100) Calcium 9.4 mg/dL mg/dL (8.5-10.4) Medications Given: Discontinued Medications Sodium Chloride (Ns) 1,000 mls @ 0 mls/hr IV EDNOW ONE; Wide Open PRN Reason: Protocol Stop: 01/22/17 19:16 Last Admin: 01/22/17 19:40 Dose: 1,000 mls Sodium Chloride (Ns) 1,000 mls @ 0 mls/hr IV EDNOW ONE; Wide Open PRN Reason: Protocol Stop: 01/22/17 19:16 Last Admin: 01/22/17 20:17 Dose: 1,000 mls Morphine Sulfate (Morphine) 4 mg IVP EDNOW ONE Stop: 01/22/17 19:56 Last Admin: 01/22/17 20:17 Dose: 4 mg Ondansetron HCl (Zofran) 4 mg IVP EDNOW ONE Stop: 01/22/17 19:16 Last Admin: 01/22/17 19:40 Dose: 4 mg Departure - Departure Disposition: Home, Routine, Self-Care Clinical Impression: History of dental surgery Condition: Good Instructions: Acute Nausea and Vomiting (ED) Additional Instructions: Please follow-up with dentist if you have continued dental pain. Referrals: NONE *PRIMARY CARE P,. [Primary Care Provider] - As per Instructions [facility],. [Clinic] - As per Instructions Prescriptions: Ondansetron Odt [Zofran Odt 4 mg (*)] 4 mg PO Q4 PRN #12 tab PRN Reason: Nausea/Vomiting, Use 1st
[2017-01-22 19:49] LABS: % IMMATURE GRANULYOCYTES 0.4 % (0.0-1.1); ABSOLUTE IMMATURE GRANULOCYTES 0.04 10^3/uL (0.00-0.10); ADD DIFF? NO; ADD MORPH? NO; ADD SCAN? NO; ATYPICAL LYMPHOCYTE FLAG 0 (0-99); FRAGMENT RBC FLAG 0 (0-99); HEMOGLOBIN 11.8 g/dL (12.6-16.3); LEFT SHIFT FLG 0 (0-99); LIPEMIA HEMOLYSIS FLAG 90 (0-99); MEAN CELL HEMOGLOBIN 31.5 pg (27.9-34.1); MEAN CELL HEMOGLOBIN CONCENTR. 34.7 g/dL (32.4-36.7); MEAN CELL VOLUME 90.7 fL (81.5-99.8); MEAN PLATELET VOLUME 10.2 fL (8.7-11.7); PLATELET CLUMPS FLAG 0 (0-99); PLATELET COUNT 297 10^3/uL (150-400); RED BLOOD CELL COUNT 3.75 10^6/uL (4.18-5.33); RED CELL DISTRIBUTION WIDTH 12.7 % (11.5-15.2)
[2017-01-22 20:00] LABS: ANION GAP 15 mEq/L (8-16); CALCIUM 9.4 mg/dL (8.5-10.4); CARBON DIOXIDE 23 mEq/l (22-31); CHLORIDE 107 mEq/L (97-110); CREATININE 0.9 mg/dL (0.6-1.0); GLOMERULAR FILTRATION RATE > 60; GLUCOSE 83 mg/dL (70-100); POTASSIUM 4.1 mEq/L (3.5-5.2); SODIUM 145 mEq/L (134-144)
[2017-01-22 20:47] VITALS: BP 122/82; PULSE 68; O2SAT 94
== END 2017-01-22 20:47 | disposition home or self-care (01) ==
DX: Z98.890 Other specified postprocedural states (principal); F17.200 Nicotine dependence, unspecified, uncomplicated; E86.9 Volume depletion, unspecified
CPT/HCPCS: 96374; J2405

== ENCOUNTER 2017-02-28 23:42 | Emergency (ER) | payer MEDICAID ==
[2017-02-28 23:54] VITALS: O2SAT 97
[2017-03-01] MEDS ORDERED: CLINDAMYCIN 150 MG CAP PO ONE (01:07)
--- NOTE | 2017-03-01 01:09 | EDPHY ---
H & P Stated Complaint: c/o swelling/pain in R cheek x 2 days, thinks could be related to tooth inf Time Seen by Provider: 03/01/17 00:57 HPI/ROS: HPI The patient presents with right-sided facial swelling and pain which has been present for the last 2 weeks, though improved, and then got worse a few days ago. The pain is achy, constant, improved with ibuprofen. She has not had any rhinorrhea. She has not had a fever. She does have some tooth pain. She is awaiting a dentist appointment. She does report dysuria.. REVIEW OF SYSTEMS Constitutional: No fever, no chills. Eyes: No discharge. ENT: No sore throat. Cardiovascular: No chest pain, no palpitations. Respiratory: No cough, no shortness of breath. Gastrointestinal: No abdominal pain, no vomiting. Genitourinary: No hematuria. Musculoskeletal: No back pain. Skin: No rashes. Neurological: No headache. PHYSICAL General Appearance: Alert, no distress Eyes: Pupils equal and round no pallor or injection ENT, Mouth: Right cheek is slightly erythematous and non edematous, there is tenderness to palpation along the axillary anterior gum line without any sully areas of fluctuance, Mucous membranes moist Respiratory: There are no retractions, lungs are clear to auscultation Cardiovascular: Regular rate and rhythm Gastrointestinal: Abdomen is soft and non-tender, no masses, bowel sounds normal Neurological: A&O, moves all extremities Skin: Warm and dry, no rashes Musculoskeletal: Neck is supple non tender Extremities: symmetrical, full range of motion Psychiatric: Patient is oriented X 3, there is no agitation Source: Patient Exam Limitations: No limitations - Medical/Surgical History Hx Asthma: No Hx Chronic Respiratory Disease: No Hx Diabetes: No Hx Cardiac Disease: No Hx Renal Disease: No Hx Cirrhosis: No Hx Alcoholism: Yes Hx HIV/AIDS: No Hx Splenectomy or Spleen Trauma: No Other PMH: SURG FOR ENDOMETRIOSIS/ABLATION. Born with 1 kidney, c sections , etoh ,tubal ligation, depression - Social History Smoking Status: Current every day smoker Constitutional: Initial Vital Signs Temperature (C) 37.1 C 02/28/17 23:50 Heart Rate 86 02/28/17 23:50 Respiratory Rate 16 02/28/17 23:50 Blood Pressure 115/76 02/28/17 23:50 O2 Sat (%) 97 02/28/17 23:50 O2 Delivery Mode Room Air Allergies/Adverse Reactions: amoxicillin Allergy (Verified 02/28/17 23:54) Home Medications: Medication Instructions Recorded Wellbutrin 100mg (*) 03/28/16 IBUPROFEN 02/28/17 Clindamycin HCl [Clindamycin] 300 mg PO TID #30 cap 03/01/17 Nitrofurantoin Monohyd/M-Cryst 100 mg PO BID 5 Days capsule 03/01/17 [Macrobid 100 mg Capsule] Phenazopyridine HCl [Pyridium] 200 mg PO TID #6 tab 03/01/17 Medical Decision Making Differential Diagnosis: A 36-year-old female presents with right-sided facial pain. On exam, slight erythema of her cheek and tenderness to palpation along the maxillary gum line. Differential diagnosis includes periapical abscess which is small, periapical cellulitis, pulpitis, less likely sinusitis. Plan to treat with clindamycin. The patient also mentioned that she is having urinary symptoms including dysuria and urgency. She does have a history of frequent urinary tract infections. UA was checked and is indicative of UTI. I reviewed her most recent culture results from November of 2016 and plan to treat her with nitrofurantoin. She is in agreement with this plan. She will follow up with her dentist in a few days. - Data Points Laboratory Results: 03/01/17 01:20 Urine Color HUANG Urine Appearance HAZY Urine pH 6.0 (5.0-7.5) Ur Specific [place] 1.013 (1.002-1.030) Urine Protein NEGATIVE (NEGATIVE) Urine Ketones NEGATIVE (NEGATIVE) Urine Blood 1+ H (NEGATIVE) Urine Nitrate POSITIVE H (NEGATIVE) Urine Bilirubin NEGATIVE (NEGATIVE) Urine Urobilinogen 2.0 EU H EU (0.2-1.0) Ur Leukocyte Esterase 3+ H (NEGATIVE) Urine RBC 5-10 /hpf H /hpf (0-3) Urine WBC 50-182 /hpf H /hpf (0-3) Ur Epithelial Cells TRACE /lpf /lpf (NONE-1+) Urine Bacteria 4+ /hpf H /hpf (NONE SEEN) Urine Mucus TRACE /lpf /lpf (NONE-1+) Urine Glucose NEGATIVE (NEGATIVE) Medications Given: Discontinued Medications Clindamycin (Clindamycin) 300 mg PO EDNOW ONE PRN Reason: Protocol Stop: 03/01/17 01:08 Last Admin: 03/01/17 01:19 Dose: 300 mg Nitrofurantoin (Macrobid 100mg Prepack#2) 1 btl TAKEHOME EDNOW ONE PRN Reason: Protocol Stop: 03/01/17 02:28 Last Admin: 03/01/17 02:46 Dose: 1 btl Nitrofurantoin Macrocrystals (Macrobid) 100 mg PO EDNOW ONE PRN Reason: Protocol Stop: 03/01/17 02:28 Last Admin: 03/01/17 02:47 Dose: 100 mg Phenazopyridine HCl (Pyridium) 200 mg PO EDNOW ONE Stop: 03/01/17 02:31 Last Admin: 03/01/17 02:47 Dose: 200 mg Departure - Departure Disposition: Home, Routine, Self-Care Clinical Impression: Dental infection, UTI (urinary tract infection) Condition: Good Instructions: Urinary Tract Infection in Women (ED), Dental Abscess (ED), Toothache (ED) Additional Instructions: Please follow-up with your dentist in 1-2 days. Return to the emergency department if your worse in any way. Referrals: [facility] [Other] - As per Instructions Prescriptions: Clindamycin HCl [Clindamycin] 300 mg PO TID #30 cap Nitrofurantoin Monohyd/M-Cryst [Macrobid 100 mg Capsule] 100 mg PO BID 5 Days capsule Phenazopyridine HCl [Pyridium] 200 mg PO TID #6 tab
[2017-03-01] MEDS ORDERED: NITROFURANTOIN MACROBID 100 MG CAP PO ONE (02:27)
[2017-03-01] MEDS ORDERED: NITROFURANTOIN 100MG PREPACK#2 BTL TAKEHOME ONE (02:27)
[2017-03-01] MEDS ORDERED: PHENAZOPYRIDINE HCL 200 MG TAB PO ONE (02:30)
[2017-03-01 02:51] VITALS: BP 111/80; PULSE 70; RESP 18; TEMP 97.9
== END 2017-03-01 02:51 | disposition home or self-care (01) ==
DX: K04.7 Periapical abscess without sinus (principal); N39.0 Urinary tract infection, site not specified; B96.89 Other specified bacterial agents as the cause of diseases classified elsewhere; F17.200 Nicotine dependence, unspecified, uncomplicated

== ENCOUNTER 2017-07-18 19:21 | Emergency (ER) | payer MEDICAID ==
[2017-07-18] MEDS ORDERED: LORazepam 1 MG TAB PO ONE (19:45)
--- NOTE | 2017-07-18 19:47 | EDPHY ---
H & P Stated Complaint: Meth use, wants detox, anxiety, kratam use Time Seen by Provider: 07/18/17 19:36 HPI/ROS: CHIEF COMPLAINT: Withdrawal HISTORY OF PRESENT ILLNESS: Patient is a 37-year-old female who wants to have help withdrawing from methamphetamine and Kratom and alcohol. She states that she last used about 8 hr ago. She is feeling very fidgety and anxious and irritated by small things. No recent fevers or illness. No trauma. [facility]. REVIEW OF SYSTEMS: Constitutional: denies: chills, fever, recent illness, recent injury EENTM: denies: blurred vision, double vision, nose congestion Respiratory: denies: cough, shortness of breath Cardiac: denies: chest pain, irregular heart rate, lightheadedness, palpitations Gastrointestinal/Abdominal: denies: abdominal pain, diarrhea, nausea, vomiting, blood streaked stools Genitourinary: denies: dysuria, frequency, hematuria, pain Musculoskeletal: See HPI Skin: denies: lesions, rash, jaundice, bruising Neurological: denies: headache, numbness, paresthesia, tingling, dizziness, weakness Hematologic/Lymphatic: denies: blood clots, easy bleeding, easy bruising Immunologic/allergic: denies: HIV/AIDS, transplant EXAM: GENERAL: Anxious, thin, and in no acute distress. HEAD: Atraumatic, normocephalic. EYES: Pupils equal round and reactive to light, extraocular movements intact, sclera anicteric, conjunctiva are normal. ENT: TMs normal, nares patent, oropharynx clear without exudates. Moist mucous membranes. NECK: Normal range of motion, supple without lymphadenopathy or JVD. LUNGS: Breath sounds clear to auscultation bilaterally and equal. No wheezes rales or rhonchi. HEART: Regular rate and rhythm without murmurs, rubs or gallops. ABDOMEN: Soft, nontender, normoactive bowel sounds. No guarding, no rebound. No masses appreciated. BACK: No CVA tenderness, no spinal tenderness, step-offs or deformities EXTREMITIES: Normal range of motion, no pitting or edema. No clubbing or cyanosis. NEUROLOGICAL: Cranial nerves II through XII grossly intact. Normal speech, normal gait. 5/5 strength, normal movement in all extremities, normal sensation PSYCH: Fidgety, anxious, 5 sing with armband and clothing., tearful SKIN: Warm, dry, normal turgor, some slight bruising to forearms. Source: Patient Exam Limitations: No limitations - Personal History LMP (Females 10-55): 22-28 Days Ago Current Tetanus Diphtheria and Acellular Pertussis (TDAP): No - Medical/Surgical History Hx Asthma: No Hx Chronic Respiratory Disease: No Hx Diabetes: No Hx Cardiac Disease: No Hx Renal Disease: No Hx Cirrhosis: No Hx Alcoholism: Yes Hx HIV/AIDS: No Hx Splenectomy or Spleen Trauma: No Other PMH: SURG FOR ENDOMETRIOSIS/ABLATION. Born with 1 kidney, c sections , etoh ,tubal ligation, depression - Family History Significant Family History: No pertinent family hx - Social History Smoking Status: Heavy smoker Alcohol Use: Heavy Drug Use: Other Constitutional: Initial Vital Signs Temperature (C) 36.8 C 07/18/17 19:24 Heart Rate 97 07/18/17 19:24 Respiratory Rate 20 07/18/17 19:24 Blood Pressure 122/92 H 07/18/17 19:24 O2 Sat (%) 100 07/18/17 19:24 O2 Delivery Mode Room Air Allergies/Adverse Reactions: amoxicillin Allergy (Verified 07/18/17 19:24) Home Medications: Medication Instructions Recorded Wellbutrin 100mg (*) 03/28/16 IBUPROFEN 02/28/17 Clindamycin HCl [Clindamycin] 300 mg PO TID #30 cap 03/01/17 Nitrofurantoin Monohyd/M-Cryst 100 mg PO BID 5 Days capsule 03/01/17 [Macrobid 100 mg Capsule] Phenazopyridine HCl [Pyridium] 200 mg PO TID #6 tab 03/01/17 Medical Decision Making ED Course/Re-evaluation: 8:15 p.m. the patient is feeling much better. She is ready to go to the [facility]. We will send her there with a Librium prepack. We discussed indications for returning. Differential Diagnosis: Partial list of the Differential diagnosis considered include but were not limited to; anxiety, withdrawal, substance abuse and although unlikely based on the history and physical exam, I also considered head injury, infection. - Data Points Medications Given: Discontinued Medications Chlordiazepoxide (Librium 25 Mg Prepack#6) 1 btl TAKEHOME EDNOW ONE Stop: 07/18/17 20:21 Last Admin: 07/18/17 20:34 Dose: 1 btl Lorazepam (Ativan) 2 mg PO EDNOW ONE Stop: 07/18/17 19:46 Last Admin: 07/18/17 19:49 Dose: 2 mg Departure - Departure Disposition: Home, Routine, Self-Care Clinical Impression: Polysubstance abuse Condition: Fair Instructions: Chlordiazepoxide (By mouth), Polysubstance Abuse (ED) Additional Instructions: Go directly to the [facility] Referrals: NONE *PRIMARY CARE P,. [Primary Care Provider] - As per Instructions
[2017-07-18] MEDS ORDERED: CHLORDIAZEPOXIDE 25MG PREPK#6 BTL TAKEHOME ONE (20:20)
[2017-07-18 20:40] VITALS: BP 136/73
== END 2017-07-18 20:41 | disposition home or self-care (01) ==
DX: F19.10 Other psychoactive substance abuse, uncomplicated (principal); F17.200 Nicotine dependence, unspecified, uncomplicated

== ENCOUNTER 2017-07-31 20:26 | Emergency (ER) | payer MEDICAID ==
[2017-07-31] MEDS ORDERED: LORazepam 1 MG TAB PO ONE (21:17)
--- NOTE | 2017-07-31 21:20 | EDPHY ---
H & P Time Seen by Provider: 07/31/17 21:06 HPI/ROS: CHIEF COMPLAINT: Chest pain,"I am a mess" HISTORY OF PRESENT ILLNESS: Patient is a 37-year-old female who presents to the emergency department stating that she has MS. She states that she used methamphetamine and Kratom. She now feels anxious. She is very fidgety and irradiated. She is complaining of substernal chest pain. This is been constant. It is slightly worse with movement. She has no shortness of breath. No nausea or vomiting. Patient requests detox. REVIEW OF SYSTEMS: My complete review of systems is negative except as mentioned in the HPI. Past Medical/Surgical History: Includes methamphetamine abuse, alcohol abuse, depression Past surgical history: Includes endometriosis surgery, , tubal ligation Smoking Status: Heavy smoker Constitutional: Initial Vital Signs Temperature (C) 36.4 C 07/31/17 20:29 Heart Rate 89 07/31/17 20:29 Respiratory Rate 18 07/31/17 20:29 Blood Pressure 118/103 H 07/31/17 20:29 O2 Sat (%) 94 07/31/17 20:29 O2 Delivery Mode Room Air Allergies/Adverse Reactions: amoxicillin Allergy (Verified 07/18/17 19:24) Home Medications: Medication Instructions Recorded IBUPROFEN 02/28/17 Clindamycin HCl [Clindamycin] 300 mg PO TID #30 cap 03/01/17 Clindamycin HCl [Clindamycin] 300 mg PO TID #30 cap 07/31/17 Concerta 07/31/17 traZODone 07/31/17 Medical Decision Making ED Course/Re-evaluation: In the emergency department I discussed possible etiologies with the patient. I answered all her questions. Patient does confirm that she wants to go to detox. EKG shows normal sinus rhythm, normal rate, normal axis, normal intervals. There are no ST or T-wave abnormalities. EKG is normal as interpreted by me. I discussed the results with the patient. She stated that she has recently had some discomfort in her left lower jaw. She was diagnosed with an infection and treated with clindamycin. She states she is taking this medication only intermittently. I evaluated her oropharynx. There is no signs of erythema. No swelling. She had no specific dental tenderness. Patient states she was concerned that she had an infection after her wisdom teeth were removed. Because of this she was given a prescription for clindamycin. He is given warnings prior to leaving. She will return with worsening symptoms. Differential Diagnosis: My differential includes but is not limited to ACS, acute ME, methamphetamine abuse, dental infection - Data Points Medications Given: Discontinued Medications Lorazepam (Ativan) 1 mg PO EDNOW ONE Stop: 07/31/17 21:18 Last Admin: 07/31/17 21:26 Dose: 1 mg Departure - Departure Disposition: Home, Routine, Self-Care Clinical Impression: Tooth ache Chest pain Qualifiers: Chest pain type: unspecified Qualified Code(s): R07.9 - Chest pain, unspecified Condition: Good Instructions: Chest Pain (ED) Additional Instructions: Return with increasing pain, shortness of breath or any other concerns. Take your entire course of antibiotics. Referrals: NONE *PRIMARY CARE P,. [Primary Care Provider] - As per Instructions Prescriptions: Clindamycin HCl [Clindamycin] 300 mg PO TID #30 cap
--- NOTE | 2017-07-31 21:31 | CPEKG ---
Heart Rate: 72 RR Interval: 833 P-R Interval: 148 QRSD Interval: 82 QT Interval: 412 QTC Interval: 451 P [place]: 55 QRS [place]: 74 T Wave [place]: 54 EKG Severity - NORMAL ECG - EKG Impression: SINUS RHYTHM Electronically Signed By: Mily Talley 31-Jul-2017 22:32:53
[2017-07-31] MEDS ORDERED: CHLORDIAZEPOXIDE 25MG PREPK#6 BTL TAKEHOME ONE (22:05)
[2017-07-31 22:20] VITALS: BP 129/77
== END 2017-07-31 22:20 | disposition home or self-care (01) ==
DX: R07.9 Chest pain, unspecified (principal); K08.89 Other specified disorders of teeth and supporting structures; F17.200 Nicotine dependence, unspecified, uncomplicated

== ENCOUNTER 2017-08-02 03:02 | Emergency (ER) | payer MEDICAID ==
[2017-08-02] MEDS ORDERED: NS 1,000 ML IV ONE (03:06)
--- NOTE | 2017-08-02 03:07 | EDPHY ---
H & P Time Seen by Provider: 08/02/17 03:07 HPI/ROS: HPI CHIEF COMPLAINT: Methamphetamine use, chest pain HISTORY OF PRESENT ILLNESS: This is a 37-year-old female, she presents emergency room by EMS for chest pain after she shot up methamphetamine. States approximately 2 hr ago she injected methamphetamine into her right arm. Approximately 20 min after that she got some chest discomfort. It is now since resolved. She denies any chest pain or shortness of breath upon arrival to the emergency room however she does feel anxious and is upset she shot up methamphetamine. Past Medical History: History of anxiety, history of polysubstance abuse Past Surgical History: Noncontributory Social History: Polysubstance abuse Family History: Noncontributory ROS REVIEW OF SYSTEMS: A comprehensive 10 point review of systems is otherwise negative aside from elements mentioned in the history of present illness. Exam Constitutional nontoxic-appearing, triage nursing summary reviewed, vital signs reviewed, awake/alert. Eyes normal conjunctivae and sclera, EOMI, PERRLA. HENT normal inspection, atraumatic, moist mucus membranes, no epistaxis, neck supple/ no meningismus, no raccoon eyes. Respiratory clear to auscultation bilaterally, normal breath sounds, no respiratory distress, no wheezing. Cardiovascular rate normal, regular rhythm, no murmur, no edema, distal pulses normal. Gastrointestinal soft, non-tender, no rebound, no guarding, normal bowel sounds, no distension, no pulsatile mass. Genitourinary no CVA tenderness. Musculoskeletal no midline vertebral tenderness, full range of motion, no calf swelling, no tenderness of extremities, no meningismus, good pulses, neurovascularly intact. Skin pink, warm, & dry, no rash, skin atraumatic. Neurologic awake, alert and oriented x 3, AAOx3, moves all 4 extremities equally, motor intact, sensory intact, CN II-XII intact, normal cerebellar, normal vision, normal speech. Psychiatric normal mood/affect. Heme/Lymph/Immune no lymphadenopathy. Differential diagnosis includes but is not limited to: Acute anxiety, methamphetamine abuse, ACS, atypical chest pain, pneumothorax, pneumonia, pulmonary embolism, aortic dissection, congestive heart failure, tumor, musculoskeletal pain, esophageal pain, GERD, peptic ulcer disease, pancreatitis Medical Decision Making: Plan for this patient IV establishment with EKG, troponin, full monitoring and evaluation advisor, chest x-ray, gentle IV fluids and re-evaluate. She has no chest pain at this time. Re-evaluation: EKG interpretation by me on record in [facility] system. Impression time of EKG 3:25 a.m., sinus rhythm rate of [address] elevation no ST depression no significant T-wave abnormalities. Nonischemic EKG. ED x-ray chest one view negative for acute cardiopulmonary disease specifically no free air or pneumothorax or subcutaneous emphysema. Troponin noted to be negative. EKG is nonischemic. Drug screen noted positive for methamphetamine. 0550: Patient resting comfortably no acute distress. Denies any chest pain infectious been sleeping. Chest x-ray is unremarkable nonischemic EKG normal troponin. She feels comfortable being discharged. I explained to her the methamphetamine is very dangerous drug she refrain from doing it she understands. Additionally return precautions discussed. Source: Patient, EMS - Medical/Surgical History Hx Asthma: No Hx Chronic Respiratory Disease: No Hx Diabetes: No Hx Cardiac Disease: No Hx Renal Disease: No Hx Cirrhosis: No Hx Alcoholism: Yes Hx HIV/AIDS: No Hx Splenectomy or Spleen Trauma: No Other PMH: SURG FOR ENDOMETRIOSIS/ABLATION. Born with 1 kidney, c sections , etoh ,tubal ligation, depression, opiate abuse - Social History Smoking Status: Heavy smoker Constitutional: Initial Vital Signs Temperature (C) 36.9 C 08/02/17 03:05 Heart Rate 106 H 08/02/17 03:05 Respiratory Rate 18 08/02/17 03:05 Blood Pressure 131/67 H 08/02/17 03:05 O2 Sat (%) 95 08/02/17 03:05 O2 Delivery Mode Room Air Allergies/Adverse Reactions: amoxicillin Allergy (Verified 08/02/17 03:16) Home Medications: Medication Instructions Recorded IBUPROFEN 02/28/17 Clindamycin HCl [Clindamycin] 300 mg PO TID #30 cap 03/01/17 Clindamycin HCl [Clindamycin] 300 mg PO TID #30 cap 07/31/17 Concerta 07/31/17 traZODone 07/31/17 Medical Decision Making - Data Points Laboratory Results: Laboratory Results 08/02/17 03:15 08/02/17 03:15 08/02/17 08/02/17 08/02/17 03:40 03:15 03:15 WBC RBC Hgb Hct MCV MCH MCHC RDW Plt Count MPV Neut % (Auto) Lymph % (Auto) Garvin % (Auto) Eos % (Auto) Baso % (Auto) Nucleat RBC Rel Count Absolute Neuts (auto) Absolute Lymphs (auto) Absolute Monos (auto) Absolute Eos (auto) Absolute Basos (auto) Absolute Nucleated RBC Immature Gran % Immature Gran # Sodium 141 mEq/L mEq/L (135-145) Potassium 3.7 mEq/L mEq/L (3.3-5.0) Chloride 108 mEq/L mEq/L (97-110) Carbon Dioxide 24 mEq/l mEq/l (22-31) Anion Gap 9 mEq/L mEq/L (8-16) BUN 20 mg/dL mg/dL (7-23) Creatinine 0.8 mg/dL mg/dL (0.6-1.0) Estimated GFR > 60 Glucose 56 mg/dL L mg/dL (70-100) Calcium 8.9 mg/dL mg/dL (8.5-10.4) Magnesium 1.7 mg/dL mg/dL (1.6-2.3) Total Bilirubin 0.2 mg/dL mg/dL (0.1-1.4) Conjugated Bilirubin 0.2 mg/dL mg/dL (0.0-0.5) Unconjugated Bilirubin 0.0 mg/dL mg/dL (0.0-1.1) AST 17 IU/L IU/L (14-46) ALT 24 IU/L IU/L (9-52) Alkaline Phosphatase 49 IU/L IU/L (38-126) POC Troponin I 0.00 ng/mL ng/mL (0.00-0.08) Total Protein 6.8 g/dL g/dL (6.3-8.2) Albumin 3.7 g/dL g/dL (3.5-5.0) Lipase 97 IU/L IU/L (23-300) Beta HCG, Qual NEGATIVE Urine Opiates Screen Urine Barbiturates Ur Phencyclidine Scrn Ur Amphetamine Screen U Benzodiazepines Scrn Urine Cocaine Screen U Marijuana (THC) Screen 08/02/17 08/02/17 03:15 03:10 WBC 6.16 10^3/uL 10^3/uL (3.80-9.50) RBC 3.93 10^6/uL L 10^6/uL (4.18-5.33) Hgb 11.7 g/dL L g/dL (12.6-16.3) Hct 34.5 % L % (38.0-47.0) MCV 87.8 fL fL (81.5-99.8) MCH 29.8 pg pg (27.9-34.1) MCHC 33.9 g/dL g/dL (32.4-36.7) RDW 13.1 % % (11.5-15.2) Plt Count 322 10^3/uL 10^3/uL (150-400) MPV 9.8 fL fL (8.7-11.7) Neut % (Auto) 50.6 % % (39.3-74.2) Lymph % (Auto) 29.5 % % (15.0-45.0) Garvin % (Auto) 11.2 % % (4.5-13.0) Eos % (Auto) 7.3 % % (0.6-7.6) Baso % (Auto) 1.1 % % (0.3-1.7) Nucleat RBC Rel Count 0.0 % % (0.0-0.2) Absolute Neuts (auto) 3.11 10^3/uL 10^3/uL (1.70-6.50) Absolute Lymphs (auto) 1.82 10^3/uL 10^3/uL (1.00-3.00) Absolute Monos (auto) 0.69 10^3/uL 10^3/uL (0.30-0.80) Absolute Eos (auto) 0.45 10^3/uL H 10^3/uL (0.03-0.40) Absolute Basos (auto) 0.07 10^3/uL 10^3/uL (0.02-0.10) Absolute Nucleated RBC 0.00 10^3/uL 10^3/uL (0-0.01) Immature Gran % 0.3 % % (0.0-1.1) Immature Gran # 0.02 10^3/uL 10^3/uL (0.00-0.10) Sodium Potassium Chloride Carbon Dioxide Anion Gap BUN Creatinine Estimated GFR Glucose Calcium Magnesium Total Bilirubin Conjugated Bilirubin Unconjugated Bilirubin AST ALT Alkaline Phosphatase POC Troponin I Total Protein Albumin Lipase Beta HCG, Qual Urine Opiates Screen NEGATIVE (NEGATIVE) Urine Barbiturates NEGATIVE (NEGATIVE) Ur Phencyclidine Scrn NEGATIVE (NEGATIVE) Ur Amphetamine Screen NON-NEGATIVE H (NEGATIVE) U Benzodiazepines Scrn NEGATIVE (NEGATIVE) Urine Cocaine Screen NEGATIVE (NEGATIVE) U Marijuana (THC) Screen NEGATIVE (NEGATIVE) Medications Given: Discontinued Medications Sodium Chloride (Ns) 1,000 mls @ 0 mls/hr IV EDNOW ONE; Wide Open PRN Reason: Protocol Stop: 08/02/17 03:07 Last Admin: 08/02/17 03:27 Dose: 1,000 mls Point of Care Test Results: Chemistry 08/02/17 03:40 POC Troponin I 0.00 ng/mL ng/mL (0.00-0.08) Departure - Departure Disposition: Home, Routine, Self-Care Clinical Impression: Methamphetamine abuse Condition: Good Instructions: Methamphetamine Abuse (ED) Referrals: Patient,NotPresent [Unknown] - As per Instructions
--- NOTE | 2017-08-02 03:27 | CPEKG ---
Heart Rate: 77 RR Interval: 779 P-R Interval: 152 QRSD Interval: 80 QT Interval: 424 QTC Interval: 480 P [place]: 50 QRS [place]: 76 T Wave [place]: 52 EKG Severity - NORMAL ECG - EKG Impression: SINUS RHYTHM Electronically Signed By: Charles Hernández 02-Aug-2017 07:29:17
[2017-08-02 03:45] LABS: PLATELET COUNT 322 10^3/uL (150-400)
[2017-08-02 05:24] VITALS: BP 121/82
== END 2017-08-02 06:01 | disposition home or self-care (01) ==
LOC: EDUNIT#
DX: F15.10 Other stimulant abuse, uncomplicated (principal); F17.200 Nicotine dependence, unspecified, uncomplicated; E86.9 Volume depletion, unspecified
CPT/HCPCS: 80305; 84484-PO

== ENCOUNTER 2017-08-04 20:38 | Emergency (ER) | payer MEDICAID ==
--- NOTE | 2017-08-04 20:59 | EDPHY ---
H & P Time Seen by Provider: 08/04/17 20:52 HPI/ROS: CHIEF COMPLAINT: Toothache HISTORY OF PRESENT ILLNESS: 37-year-old female [facility] seen the ER few days ago for odontalgia, presents to the ER complaining of continued odontalgia. She has been intermittently compliant with her clindamycin. She denies trismus or drooling. Denies fever chills. Denies floor of mouth or submental pain. No nuchal rigidity. No facial swelling PHYSICAL EXAM (Prior to examination, patient consented to physical exam, hands were washed and my usual and customary physical exam procedures followed) 1) GENERAL: Well-developed, well-nourished, alert and oriented. Appears to be in no acute distress. 2) HEAD: Normocephalic 3) HEENT: sclera anicteric . Symmetrical faces. Nasolabial fold symmetrical. Poor dentition. Tender to percussion maxillary and mandibular left dentition with no signs of apical abscess. Floor of mouth soft no evidence of Gomez's angina. Submental and sub mandibular spaces are soft with no induration. 4) LUNGS: Breathing comfortably. Smoking Status: Heavy smoker Constitutional: Initial Vital Signs Temperature (C) 36.7 C 08/04/17 20:50 Heart Rate 77 08/04/17 20:50 Respiratory Rate 18 08/04/17 20:50 Blood Pressure 132/92 H 08/04/17 20:50 O2 Sat (%) 96 08/04/17 20:50 O2 Delivery Mode Room Air,Nasal Cannula Allergies/Adverse Reactions: amoxicillin Allergy (Verified 08/04/17 20:51) Home Medications: Medication Instructions Recorded IBUPROFEN 02/28/17 Clindamycin HCl [Clindamycin] 300 mg PO TID #30 cap 03/01/17 Clindamycin HCl [Clindamycin] 300 mg PO TID #30 cap 07/31/17 Concerta 07/31/17 traZODone 07/31/17 Medical Decision Making Procedures: Procedure: Dental nerve block Indication: Odontalgia, pain relief Indications risks benefits discussed with patient. Inferior alveolar and greater palatine nerve block using 1% plain bupivacaine administered by myself usual and customary fashion. Patient tolerated procedure well. ED Course/Re-evaluation: Doubt deep space infection. Doubt Gomez's angina. I do not think that imaging studies are currently indicated. Today is Monday. Recommend she stay compliant with their clindamycin. Given dental follow-up information. She feels comfortable being discharged. I saw this patient independently based on established practice protocols. Care of patient under supervision of secondary supervising physician Dr Kern. - Data Points Medications Given: Discontinued Medications Chlordiazepoxide HCl (Librium) 25 mg PO EDNOW ONE Stop: 08/04/17 21:21 Last Admin: 08/04/17 21:27 Dose: 25 mg Departure - Departure Disposition: Home, Routine, Self-Care Clinical Impression: Odontalgia Condition: Good Instructions: Toothache (ED) Additional Instructions: Return to the ER immediately if you cannot swallow, have drooling, fevers, neck stiffness, cannot open your jaw, or any other symptoms that concern you. Referrals: [facility] [Outside] - As per Instructions Dental [facility] [Outside] - As per Instructions [facility] [Outside] - As per Instructions [facility] [Outside] - As per Instructions [facility] [Outside] - As per Instructions
[2017-08-04] MEDS ORDERED: chlordiazePOXIDE 25 MG CAP PO ONE (21:20)
[2017-08-04 21:29] VITALS: BP 121/74
== END 2017-08-04 21:35 | disposition home or self-care (01) ==
PROC: 3E0X3BZ Introduction of Anesthetic Agent into Cranial Nerves, Percutaneous Approach (ICD-10-PCS; principal; 2017-08-04)
DX: K08.89 Other specified disorders of teeth and supporting structures (principal); F17.200 Nicotine dependence, unspecified, uncomplicated

== ENCOUNTER 2018-01-04 23:03 | Emergency (ER) | payer MEDICAID ==
[2018-01-04 23:14] VITALS: BP 118/75
[2018-01-04] MEDS ORDERED: CLINDAMYCIN 150MG PREPACK#6 BTL TAKEHOME ONE (23:26)
--- NOTE | 2018-01-04 23:37 | EDPHY ---
H & P Stated Complaint: L lower toothache Time Seen by Provider: 01/04/18 23:16 HPI/ROS: Chief Complaint: Toothache HPI: 37-year-old woman presenting with left lower toothache for the last 2 days. Patient states that she broke the tooth several days ago while in intermediate. She has had worsening pain and swelling for the last 2 days. Feels like similar prior dental infections in the past. She normally sees dental aid but has not had a chance to follow up it. She was just released from intermediate today. No fevers or chills. It is painful to chew. No difficulty swallowing. No difficulty breathing. ROS: 10 systems were reviewed and were negative except those elements noted in the HPI. PMH: Depression Social History: Positive smoking, currently residing in a retirement house Family History: non-contributory Physical Exam: General: Awake, alert, no acute distress Mouth: Patient has multiple dental caries. Left lower premolar is broken. There is mild erythema at the gingival base. No fluctuance or pointing. No discharge. No trismus. No submandibular tenderness. Neck: No swelling or fullness. No lymphadenopathy. Trachea is midline. Skin: No rash - Personal History LMP (Females 10-55): 15-21 Days Ago Current Tetanus Diphtheria and Acellular Pertussis (TDAP): No - Medical/Surgical History Hx Asthma: No Hx Chronic Respiratory Disease: No Hx Diabetes: No Hx Cardiac Disease: No Hx Renal Disease: No Hx Cirrhosis: No Hx Alcoholism: Yes Hx HIV/AIDS: No Hx Splenectomy or Spleen Trauma: No Other PMH: SURG FOR ENDOMETRIOSIS/ABLATION. Born with 1 kidney, c sections , etoh ,tubal ligation, depression, opiate abuse - Social History Smoking Status: Heavy smoker Constitutional: Initial Vital Signs Temperature (C) 37.0 C 01/04/18 23:12 Heart Rate 94 01/04/18 23:12 Respiratory Rate 16 01/04/18 23:12 Blood Pressure 118/75 01/04/18 23:12 O2 Sat (%) 96 01/04/18 23:12 O2 Delivery Mode Room Air Allergies/Adverse Reactions: amoxicillin Allergy (Verified 08/04/17 20:51) Home Medications: Medication Instructions Recorded traZODone 07/31/17 Clindamycin HCl [Clindamycin] 300 mg PO TID #30 cap 01/04/18 Gabapentin 01/04/18 Wellbutrin Sr 01/04/18 Medical Decision Making ED Course/Re-evaluation: 37-year-old with dental abscess. Will treat with clindamycin given her amoxicillin allergy. She is already followed by dental aid. Will follow up in 2-3 days for further care. Departure - Departure Disposition: Home, Routine, Self-Care Clinical Impression: Dental abscess Condition: Good Instructions: Dental Abscess (ED) Additional Instructions: Please take your full course of antibiotics. You may alternate ibuprofen with acetaminophen as needed for pain. Follow up with dental aid in 2-3 days for further evaluation. Referrals: [facility] [Outside] - As per Instructions Prescriptions: Clindamycin HCl [Clindamycin] 300 mg PO TID #30 cap
== END 2018-01-04 23:47 | disposition home or self-care (01) ==
DX: K04.7 Periapical abscess without sinus (principal); F17.200 Nicotine dependence, unspecified, uncomplicated

== ENCOUNTER 2018-02-04 21:02 | Emergency (ER) | payer MEDICAID ==
[~2018-02-04 21:02] MED LIST: buPROPion XL 150 MG TAB PO ONE
[2018-02-04] MEDS ORDERED: LORazepam 1 MG TAB PO ONE (21:46)
--- NOTE | 2018-02-04 21:46 | EDPHY ---
HPI/HX/ROS/PE/MDM Narrative: CHIEF COMPLAINT: "Severe anxiety since waking this morning" HISTORY OF PRESENT ILLNESS: The patient is a 37 y/o female with a history of methamphetamine abuse who arrives via EMS complaining of severe anxiety onset this morning after missing her medications for the last two days. She currently resides at a [facility] on a work-release program while recovering from methamphetamine abuse. She relapsed on , 3 days ago, and told the facility the next day, which resulted in a hold on her ability to leave the facility. Due to this, she was unable to pick and shovel man her medications from the pharmacy and has been off them for the last 2 days. Today, she complains of "severe anxiety about wanting to use" as well as concern over being off her medications. She had a mild headache earlier today that resolved. Her LMP was three weeks ago and she denies chance of . No rash, swelling, fever, chills, chest pain, shortness of breath, palpitations , abdominal pain, vomiting, diarrhea, urinary complaints, lightheadedness. REVIEW OF SYSTEMS: Aside from elements discussed in the HPI, a comprehensive 10-point review of systems was reviewed and is negative. PAST MEDICAL HISTORY: Methamphetamine use, prior opiate and alcohol abuse. Tubal ligation. 150mg trazodone, 600mg BID gabapentin, 300mg Wellbutrin SOCIAL HISTORY: Currently residing at [facility] through [facility]. Single. History of substance abuse. VITAL SIGNS: Reviewed by me GENERAL: Well-developed, well-nourished, resting comfortably in no respiratory distress. HEENT: Atraumatic. Eyes: No icterus, no injection. Mouth: moist mucous membranes. No erythema or lesions. Neck: supple with no adenopathy. LUNGS: Clear to auscultation bilaterally, no wheezes, rhonchi or rales. CARDIAC: Regular rate and rhythm, no rubs, murmurs or gallops. ABDOMEN: Soft, nontender, nondistended, bowel sounds normal. BACK: No CVA tenderness. EXTREMITIES: No trauma. No edema. Range of motion is normal throughout. NEURO: Alert and oriented, grossly nonfocal. SKIN: Warm and dry, no rash. PSYCHIATRIC: Normal mentation, no agitation. Portions of this note were transcribed by a medical instrument cable fabricator. I personally performed a history, physical exam, medical decision making, and confirmed accuracy of information the transcribed note. ED Course: This is a 37 y/o female with a history of methamphetamine abuse who presents complaining of anxiety onset this morning. She relapsed on meth 2 days ago and her facility subsequently restricted her ability to leave to pick and shovel man medications at the pharmacy. She has now missed 2 days of her medications. Her exam is unremarkable. Plan for urine tox and 1mg PO Ativan and discharge with home prescriptions. Standard care instructions and return precautions discussed. MDM: Differential diagnoses for the patient's symptom complex was considered including but not limited to the illicit drug use, drug-seeking behavior, anxiety, drug withdrawal, medication withdrawal. - Data Points Laboratory Results: 02/04/18 21:04 Urine Opiates Screen NEGATIVE (NEGATIVE) Urine Barbiturates NEGATIVE (NEGATIVE) Ur Phencyclidine Scrn NEGATIVE (NEGATIVE) Ur Amphetamine Screen NON-NEGATIVE H (NEGATIVE) U Benzodiazepines Scrn NEGATIVE (NEGATIVE) Urine Cocaine Screen NEGATIVE (NEGATIVE) U Marijuana (THC) Screen NEGATIVE (NEGATIVE) Medications Given: Discontinued Medications Bupropion HCl (Wellbutrin Xl) 300 mg PO EDNOW ONE Stop: 02/04/18 09:01 Last Admin: 02/04/18 22:40 Dose: 300 mg Gabapentin (Neurontin) 600 mg PO EDNOW ONE Stop: 02/04/18 22:21 Last Admin: 02/04/18 22:40 Dose: 600 mg Lorazepam (Ativan) 1 mg PO EDNOW ONE Stop: 02/04/18 21:47 Last Admin: 02/04/18 22:00 Dose: 1 mg Trazodone HCl (Trazodone) 150 mg PO HS [facility] Stop: 08/04/18 20:59 Last Admin: 02/04/18 22:41 Dose: 150 mg General Time Seen by Provider: 02/04/18 21:28 Initial Vital Signs: Initial Vital Signs Temperature (C) 36.5 C 02/04/18 21:06 Heart Rate 55 L 02/04/18 21:06 Respiratory Rate 18 02/04/18 21:06 Blood Pressure 153/76 H 02/04/18 21:06 O2 Sat (%) 100 02/04/18 21:06 O2 Delivery Mode Room Air Allergies/Adverse Reactions: amoxicillin Allergy (Verified 02/04/18 21:08) Home Medications: Medication Instructions Recorded traZODone 07/31/17 Gabapentin 01/04/18 Wellbutrin Sr 01/04/18 Erythromycin 0.5% 1 spring LEFTEYE Q6 7 Days #1 tube 01/12/18 Departure - Departure Disposition: Home, Routine, Self-Care Clinical Impression: Anxiety, History of methamphetamine abuse, Medication refill Condition: Good Instructions: Bupropion (By mouth), Trazodone (By mouth), Gabapentin (By mouth) , Anxiety (ED) Additional Instructions: 1. Take all medications as directed. Ensure you or a proxy on your behalf is able to pick and shovel man your medications from the pharmacy tomorrow without fail. 2. Follow up with your primary care provider as needed for continued symptoms. 3. Return for worsening of condition. Referrals: [facility],. [Clinic] - As per Instructions [facility],. [Clinic] - As per Instructions Report Scribed for: Aileen Zarco Report Scribed by: Ariana Nayak Date of Report: 02/04/18 Time of Report: 21:47
[2018-02-04] MEDS ORDERED: GABAPENTIN 300 MG CAP PO ONE (22:20)
[2018-02-04] MEDS ORDERED: traZODone 50 MG TAB ONE (22:27)
[2018-02-04 22:47] VITALS: BP 115/76
== END 2018-02-04 22:47 | disposition home or self-care (01) ==
LOC: EDUNIT#
DX: Z76.0 Encounter for issue of repeat prescription (principal); F41.9 Anxiety disorder, unspecified
CPT/HCPCS: 80305